=== PATIENT | male | born 1945 | race Caucasian/White ===

== ENCOUNTER 2023-11-15 16:56 | Inpatient (IN) ==
[2023-11-15] MEDS: Lactated Ringers 1000 ml BAG 1,000 ML IV ONE (22:09)
[2023-11-15 23:25] LABS: C Reactive Protein 5.96 mg/L (<8.01); Magnesium 1.9 mg/dL (1.9-2.7)
[2023-11-15 23:47] LABS: Urine Appearance Clear; Urine Bilirubin Negative (Negative); Urine Blood Negative (Negative); Urine Color Light-Yellow; Urine Glucose Negative (Negative); Urine Ketones Negative (Negative); Urine Nitrite Negative (Negative); Urine Protein Trace (Negative); Urine Specific Gravity 1.012 (1.002-1.030); Urine Urobilinogen Negative (Negative); Urine pH 5.5 (5.0-8.0)
[2023-11-16 00:04] LABS: High Sensitivity Troponin 1 Hr 20 pg/mL (<20)
[2023-11-16] MEDS: Lactated Ringers 1000 ml BAG 1,000 ML IV ONE (01:55)
[2023-11-16] MEDS: Calcitonin (Salmon) INJ 200 UNITS/ML 2 ML VIAL (400 units) IM ONE (03:17)
[2023-11-16] MEDS ORDERED: Dextrose 50% Syringe 50 ml 25 GM/50 ML SYRINGE IV PUSH PRN (03:40)
[2023-11-16] MEDS: Zoledronic Acid 4 MG in NS 0.9% 100 ml BAG 100 ML IVPB ONE (03:53)
[2023-11-16] MEDS: NS 0.9% 1000 ml BAG 1,000 ML IV SCH ×3 (04:07→19:44)
[2023-11-16 04:26] LABS: Hematocrit 31.6 % (38-53); Hemoglobin 10.3 g/dL (13.2-16.3); Mean Corpuscular Hemoglobin 32.9 pg (27-33); Mean Corpuscular Hgb Conc 32.5 g/dL (31-36); Mean Corpuscular Volume 101.4 fL (80-97); Mean Platelet Volume 10.1 fL (7.5-11.2); Platelet Count 80 10^3/uL (150-450); Red Blood Count 3.12 10^6/uL (4.06-5.63); Red Cell Distribution Width 15.7 % (12-17); White Blood Count 74.6 10^3/uL (3.6-10.2)
[2023-11-16 04:27] LABS: Activated Partial Thrombo Time 19.9 seconds (26.0-38.0); INR 0.99 (0.83-1.13)
[2023-11-16] MEDS: Ondansetron 4 mg VIAL 2 MG/ML 2 ml VIAL IV PRN (05:02)
[2023-11-16 05:05] LABS: Magnesium 1.8 mg/dL (1.9-2.7); Phosphorus 4.5 mg/dL (2.5-5.0)
[2023-11-16 05:15] LABS: Albumin 3.7 g/dL (3.2-5.2); Albumin/Globulin Ratio 2.1 (1-3); Calcium 14.4 mg/dL (8.6-10.3); Creatinine, Serum 3.55 mg/dL (0.67-1.17); Globulin 1.8 g/dL (2-4); Total Bilirubin 2.2 mg/dL (0.2-1.0); Total Protein 5.5 g/dL (6.4-8.9); eGFR CKD-EPI 16.8 (>60)
[2023-11-16 05:16] LABS: Calcium (PTH Intact) 14.2 mg/dL (8.6-10.3)
[2023-11-16 05:34] LABS: Vitamin D Total 25(OH) 55.4 ng/mL (20-50)
[2023-11-16] MEDS ORDERED: Scopolamine 1 mg/72hr PATCH TRANSDERM SCH (06:00)
[2023-11-16] MEDS: Enoxaparin 30 MG/0.3 ML SYR SUBCUT SCH (07:19)
[2023-11-16] MEDS: IBRUTINIB 140 MG PO SCH (10:28)
[2023-11-16 11:24] LABS: ALT 32 U/L (7-52); Albumin 3.4 g/dL (3.2-5.2); Albumin/Globulin Ratio 1.9 (1-3); Alkaline Phosphatase 115 U/L (35-149); Anion Gap 11 mmol/L (2-16); Blood Urea Nitrogen 52 mg/dL (6-24); CO2 Carbon Dioxide 26 mmol/L (22-32); Chloride 106 mmol/L (101-111); Creatinine, Serum 3.43 mg/dL (0.67-1.17); Globulin 1.8 g/dL (2-4); Glucose 113 mg/dL (70-100); Sodium 143 mmol/L (135-145); Total Bilirubin 1.8 mg/dL (0.2-1.0); Total Protein 5.2 g/dL (6.4-8.9); eGFR CKD-EPI 17.6 (>60)
[2023-11-16 17:11] LABS: Albumin 3.4 g/dL (3.2-5.2); Calcium 12.6 mg/dL (8.6-10.3); Creatinine, Serum 3.57 mg/dL (0.67-1.17); Globulin 1.7 g/dL (2-4); Potassium 4.2 mmol/L (3.5-5.0); Total Bilirubin 1.8 mg/dL (0.2-1.0); Total Protein 5.1 g/dL (6.4-8.9); Uric Acid 12.9 mg/dL (4.4-7.6); eGFR CKD-EPI 16.7 (>60)
[2023-11-16 17:48] LABS: Ferritin 412.8 ng/mL (24-336)
[2023-11-16 17:52] LABS: Folate 19.56 ng/mL (5.90-24.80)
[2023-11-16 23:12] LABS: Albumin 3.1 g/dL (3.2-5.2); Albumin/Globulin Ratio 2.1 (1-3); Calcium 11.9 mg/dL (8.6-10.3); Creatinine, Serum 3.88 mg/dL (0.67-1.17); Globulin 1.5 g/dL (2-4); Potassium 4.1 mmol/L (3.5-5.0); Total Bilirubin 1.5 mg/dL (0.2-1.0); Total Protein 4.6 g/dL (6.4-8.9); Uric Acid 12.8 mg/dL (4.4-7.6); eGFR CKD-EPI 15.1 (>60)
[2023-11-17 07:46] LABS: Hematocrit 26.8 % (38-53); Hemoglobin 8.8 g/dL (13.2-16.3); Mean Corpuscular Hemoglobin 33.3 pg (27-33); Mean Corpuscular Hgb Conc 32.7 g/dL (31-36); Mean Corpuscular Volume 101.8 fL (80-97); Mean Platelet Volume 9.4 fL (7.5-11.2); Platelet Count 63 10^3/uL (150-450); Red Blood Count 2.63 10^6/uL (4.06-5.63); Red Cell Distribution Width 15.8 % (12-17); White Blood Count 52.3 10^3/uL (3.6-10.2)
[2023-11-17 07:50] LABS: Albumin 3.1 g/dL (3.2-5.2); Albumin/Globulin Ratio 2.1 (1-3); Calcium 11.4 mg/dL (8.6-10.3); Creatinine, Serum 3.85 mg/dL (0.67-1.17); Globulin 1.5 g/dL (2-4); Potassium 3.8 mmol/L (3.5-5.0); Total Bilirubin 1.5 mg/dL (0.2-1.0); Total Protein 4.6 g/dL (6.4-8.9); Uric Acid 12.6 mg/dL (4.4-7.6); eGFR CKD-EPI 15.3 (>60)
[2023-11-17] MEDS ORDERED: IBRUTINIB 420 MG PO SCH (09:00)
[2023-11-17] MEDS ORDERED: Rasburicase 1.5 MG VIAL(NF) IVPB ONE (09:10)
[2023-11-17 11:35] LABS: Albumin 3.5 g/dL (3.2-5.2); Albumin/Globulin Ratio 1.9 (1-3); Calcium 11.7 mg/dL (8.6-10.3); Creatinine, Serum 3.82 mg/dL (0.67-1.17); Globulin 1.8 g/dL (2-4); Potassium 3.9 mmol/L (3.5-5.0); Total Bilirubin 1.8 mg/dL (0.2-1.0); Total Protein 5.3 g/dL (6.4-8.9); Uric Acid 12.1 mg/dL (4.4-7.6); eGFR CKD-EPI 15.4 (>60)
[2023-11-17] MEDS: Rasburicase 3 MG in NS 0.9% 50 ML 48 ML IVPB ONE (14:18)
[2023-11-17 15:48] LABS: Magnesium 1.6 mg/dL (1.9-2.7)
[2023-11-17 16:52] LABS: Albumin 3.2 g/dL (3.2-5.2); Calcium 10.9 mg/dL (8.6-10.3); Creatinine, Serum 3.89 mg/dL (0.67-1.17); Globulin 1.6 g/dL (2-4); Potassium 3.6 mmol/L (3.5-5.0); Total Bilirubin 1.6 mg/dL (0.2-1.0); Total Protein 4.8 g/dL (6.4-8.9); eGFR CKD-EPI 15.1 (>60)
[2023-11-17] MEDS: Magnesium Sulf 4 GM/100 ML IV 4,000 MG/100 ML BAG IVPB ONE (18:33)
[2023-11-18 06:25] LABS: Hematocrit 27.3 % (38-53); Hemoglobin 8.8 g/dL (13.2-16.3); Mean Corpuscular Hemoglobin 32.9 pg (27-33); Mean Corpuscular Hgb Conc 32.2 g/dL (31-36); Mean Corpuscular Volume 102.1 fL (80-97); Mean Platelet Volume 9.6 fL (7.5-11.2); Platelet Count 72 10^3/uL (150-450); Red Blood Count 2.68 10^6/uL (4.06-5.63); Red Cell Distribution Width 15.8 % (12-17); White Blood Count 72.2 10^3/uL (3.6-10.2)
[2023-11-18 06:26] LABS: ABS Basophils 0.2 10^3/uL (0.0-0.1); ABS Eosinophils 0.2 10^3/uL (0.0-0.5); ABS Lymphocytes 66.8 10^3/uL (1.0-4.8); ABS Monocytes 1.8 10^3/uL (0.0-1.1); ABS Neutrophils 3.2 10^3/uL (1.5-7.6); ABS Nucleated RBC 0.26 10^3/ul; Calcium 10.1 mg/dL (8.6-10.3); Creatinine, Serum 3.64 mg/dL (0.67-1.17); Eosinophil % 0.3 %; Globulin 1.5 g/dL (2-4); Lymphocyte % 92.4 %; Magnesium 2.1 mg/dL (1.9-2.7); Nucleated Red Blood Cells % 0.4 %/100WBC (0.0-0.8); Potassium 3.5 mmol/L (3.5-5.0); RBC Morphology Normal (Normal); Total Bilirubin 1.8 mg/dL (0.2-1.0); Total Protein 4.5 g/dL (6.4-8.9); Uric Acid 5.8 mg/dL (4.4-7.6); eGFR CKD-EPI 16.3 (>60)
[2023-11-18] MEDS: Potassium Chlor 20 meq TAB.ER PO ONE (09:00)
[2023-11-18 18:11] VITALS: BP 134/70
[2023-11-19 12:39] LABS: Kappa Free Light Chain 2.27 mg/dL; Lambda Free Light Chain, S 11.1 mg/dL
[2023-11-22 15:25] LABS: Flag, M-protein Isotype Positive (Negative); Immunoglobulin A (IgA), S 104 mg/dL (61 - 356); Immunoglobulin G (IgG), S 596 mg/dL (767 - 1590); Immunoglobulin M (IgM), S 38 mg/dL (37 - 286); M-protein GL 0.047 g/dL
== END 2023-11-18 18:25 | disposition home or self-care (01) | DRG 641 ==
LOC: ED 16:56 → EDHOLD 16:56 → SUATTDRO 11-16 03:35 → MEDTELE 11-16 11:33
PROVIDERS: ADMIT Internal Medicine; ATTEND Family Medicine

== ENCOUNTER 2023-11-22 13:50 | Inpatient (IN) ==
[2023-11-22 15:00] LABS: Hemoglobin 8.6 g/dL (13.2-16.3); Mean Corpuscular Hemoglobin 32.9 pg (27-33); Mean Corpuscular Hgb Conc 33.2 g/dL (31-36); Mean Corpuscular Volume 99.1 fL (80-97); Mean Platelet Volume 8.1 fL (7.5-11.2); Platelet Count 100 10^3/uL (150-450); Red Blood Count 2.63 10^6/uL (4.06-5.63); Red Cell Distribution Width 16.8 % (12-17); White Blood Count 155.7 10^3/uL (3.6-10.2)
[2023-11-22] MEDS ORDERED: Enoxaparin 40 MG/0.4 ML SYR SUBCUT SCH (15:00)
[2023-11-22 15:01] LABS: ABS Neutrophils 4.6 10^3/uL (1.5-7.6)
[2023-11-22 15:57] LABS: ABS Basophils 0.6 10^3/uL (0.0-0.1); ABS Eosinophils 0.3 10^3/uL (0.0-0.5); ABS Lymphocytes 147.2 10^3/uL (1.0-4.8); ABS Monocytes 3.1 10^3/uL (0.0-1.1); ABS Nucleated RBC 0.52 10^3/ul; Eosinophil % 0.2 %; Lymphocyte % 94.5 %; Nucleated Red Blood Cells % 0.3 %/100WBC (0.0-0.8)
[2023-11-22] MEDS: Dexamethasone IV 40 MG in NS 0.9% 50 ML 50 ML IVPB ONE (16:38)
[2023-11-22] MEDS: NS 0.9% 1000 ml BAG 1,000 ML IV SCH (16:39)
[2023-11-23 06:24] LABS: Albumin 3.2 g/dL (3.2-5.2); Albumin/Globulin Ratio 1.9 (1-3); Calcium 8.2 mg/dL (8.6-10.3); Creatinine, Serum 3.44 mg/dL (0.67-1.17); Globulin 1.7 g/dL (2-4); Potassium 3.6 mmol/L (3.5-5.0); Total Bilirubin 1.4 mg/dL (0.2-1.0); Total Protein 4.9 g/dL (6.4-8.9); Uric Acid 6.1 mg/dL (4.4-7.6); eGFR CKD-EPI 17.5 (>60)
[2023-11-23 07:29] LABS: Hematocrit 24.2 % (38-53); Hemoglobin 8.1 g/dL (13.2-16.3); Mean Corpuscular Hemoglobin 32.7 pg (27-33); Mean Corpuscular Hgb Conc 33.3 g/dL (31-36); Mean Corpuscular Volume 98.2 fL (80-97); Mean Platelet Volume 8.9 fL (7.5-11.2); Platelet Count 91 10^3/uL (150-450); Red Blood Count 2.47 10^6/uL (4.06-5.63); Red Cell Distribution Width 16.6 % (12-17); White Blood Count 217.6 10^3/uL (3.6-10.2)
[2023-11-23 08:01] LABS: ABS Basophils 0.2 10^3/uL (0.0-0.1); ABS Eosinophils 0.2 10^3/uL (0.0-0.5); ABS Lymphocytes 209.1 10^3/uL (1.0-4.8); ABS Monocytes 2.3 10^3/uL (0.0-1.1); ABS Neutrophils 5.9 10^3/uL (1.5-7.6); ABS Nucleated RBC 0.48 10^3/ul; Eosinophil % 0.1 %; Lymphocyte % 96.1 %; Nucleated Red Blood Cells % 0.2 %/100WBC (0.0-0.8)
[2023-11-23 14:45] LABS: Calcium 9.2 mg/dL (8.6-10.3); Creatinine, Serum 3.54 mg/dL (0.67-1.17); Potassium 3.6 mmol/L (3.5-5.0); Total Protein 5.5 g/dL (6.4-8.9); Uric Acid 5.5 mg/dL (4.4-7.6); eGFR CKD-EPI 16.9 (>60)
[2023-11-23 14:46] LABS: Albumin 3.4 g/dL (3.2-5.2); Albumin/Globulin Ratio 1.6 (1-3); Globulin 2.1 g/dL (2-4); Total Bilirubin 1.6 mg/dL (0.2-1.0)
[2023-11-24 06:10] LABS: Hematocrit 21.2 % (38-53); Mean Corpuscular Hemoglobin 32.9 pg (27-33); Mean Corpuscular Hgb Conc 33.2 g/dL (31-36); Platelet Count 64 10^3/uL (150-450); Red Blood Count 2.15 10^6/uL (4.06-5.63); White Blood Count 157.7 10^3/uL (3.6-10.2)
[2023-11-24 06:26] LABS: Calcium 7.5 mg/dL (8.6-10.3); Creatinine, Serum 3.09 mg/dL (0.67-1.17); Globulin 1.5 g/dL (2-4); Magnesium 1.5 mg/dL (1.9-2.7); Potassium 3.1 mmol/L (3.5-5.0); Total Bilirubin 1.3 mg/dL (0.2-1.0); Total Protein 4.5 g/dL (6.4-8.9); Uric Acid 7.1 mg/dL (4.4-7.6); eGFR CKD-EPI 19.9 (>60)
[2023-11-24] MEDS: fentaNYL 100 mcg/2 ml 50 MCG/ML VIAL ONE (06:54)
[2023-11-24 07:12] LABS: ABS Eosinophils 0.1 10^3/uL (0.0-0.5); ABS Lymphocytes 150.5 10^3/uL (1.0-4.8); ABS Monocytes 3.6 10^3/uL (0.0-1.1); ABS Neutrophils 3.5 10^3/uL (1.5-7.6); Eosinophil % 0.1 %; Lymphocyte % 95.4 %; Nucleated Red Blood Cells % 0.3 %/100WBC (0.0-0.8)
[2023-11-24] MEDS: Magnesium Sulfate IV 1GM/100ML 1 GM/100 ML BAG IV ONE (08:30)
[2023-11-24] MEDS: Magnesium Sulfate 2 gm BAG 2 GM/50 ML BAG IVPB ONE (08:58)
[2023-11-24] MEDS: Potassium Chlor 20 meq TAB.ER PO ONE (12:01)
[2023-11-24 12:35] LABS: Immature Retic Fraction 0.72
[2023-11-24] MEDS: Dexamethasone IV 40 MG in NS 0.9% 50 ML 50 ML IVPB ONE (12:35)
[2023-11-24 13:05] LABS: Corrected Retic Count 0.7 % (0.5-2.2); Hematocrit for Retic CNT 21.2 % (38-53); RBC Retic Count 2.15 10^6/ul (4.06-5.63)
[2023-11-25 06:33] LABS: ABS Basophils 0.3 10^3/uL (0.0-0.1); ABS Eosinophils 0.2 10^3/uL (0.0-0.5); ABS Lymphocytes 202.3 10^3/uL (1.0-4.8); ABS Monocytes 2.1 10^3/uL (0.0-1.1); ABS Neutrophils 7.1 10^3/uL (1.5-7.6); ABS Nucleated RBC 0.57 10^3/ul; Eosinophil % 0.1 %; Lymphocyte % 95.5 %; Nucleated Red Blood Cells % 0.3 %/100WBC (0.0-0.8); RBC Morphology Normal (Normal); Smudge Cells Present
[2023-11-25 06:58] LABS: Albumin 3.3 g/dL (3.2-5.2); Albumin/Globulin Ratio 1.7 (1-3); Calcium 7.4 mg/dL (8.6-10.3); Creatinine, Serum 2.66 mg/dL (0.67-1.17); Globulin 1.9 g/dL (2-4); Potassium 3.9 mmol/L (3.5-5.0); Total Bilirubin 1.6 mg/dL (0.2-1.0); Total Protein 5.2 g/dL (6.4-8.9); Uric Acid 6.7 mg/dL (4.4-7.6); eGFR CKD-EPI 23.8 (>60)
[2023-11-25 08:40] LABS: Mean Platelet Volume 8.5 fL (7.5-11.2); Platelet Count 63 10^3/uL (150-450)
[2023-11-25 08:41] LABS: Hematocrit 25.9 % (38-53); Hemoglobin 8.5 g/dL (13.2-16.3); Mean Corpuscular Hemoglobin 31.2 pg (27-33); Mean Corpuscular Hgb Conc 32.6 g/dL (31-36); Mean Corpuscular Volume 95.6 fL (80-97); Red Blood Count 2.71 10^6/uL (4.06-5.63); Red Cell Distribution Width 20.4 % (12-17)
[2023-11-25] MEDS: Dexamethasone IV 40 MG in NS 0.9% 50 ML 50 ML IVPB ONE (11:43)
[2023-11-25] MEDS: Lactated Ringers 1000 ml BAG 1,000 ML IV SCH (15:35)
[2023-11-26 06:14] LABS: Hematocrit 24.3 % (38-53); Hemoglobin 8.1 g/dL (13.2-16.3); Mean Corpuscular Hemoglobin 32.3 pg (27-33); Mean Corpuscular Hgb Conc 33.4 g/dL (31-36); Mean Corpuscular Volume 96.6 fL (80-97); Mean Platelet Volume 8.2 fL (7.5-11.2); Platelet Count 60 10^3/uL (150-450); Red Blood Count 2.51 10^6/uL (4.06-5.63); Red Cell Distribution Width 19.7 % (12-17)
[2023-11-26 06:41] LABS: Albumin 3.4 g/dL (3.2-5.2); Albumin/Globulin Ratio 1.7 (1-3); Calcium 7.2 mg/dL (8.6-10.3); Creatinine, Serum 2.52 mg/dL (0.67-1.17); Magnesium 1.7 mg/dL (1.9-2.7); Potassium 4.2 mmol/L (3.5-5.0); Total Bilirubin 1.7 mg/dL (0.2-1.0); Total Protein 5.4 g/dL (6.4-8.9); Uric Acid 7.1 mg/dL (4.4-7.6); eGFR CKD-EPI 25.4 (>60)
[2023-11-26 08:53] LABS: ABS Eosinophils 0.1 10^3/uL (0.0-0.5); ABS Lymphocytes 202.3 10^3/uL (1.0-4.8); ABS Monocytes 3.3 10^3/uL (0.0-1.1); ABS Neutrophils 6.1 10^3/uL (1.5-7.6); ABS Nucleated RBC 1.23 10^3/ul; Anisocytosis 2+; Lymphocyte % 95.5 %; Nucleated Red Blood Cells % 0.6 %/100WBC (0.0-0.8); White Blood Count 211.8 10^3/uL (3.6-10.2)
[2023-11-26] MEDS: Magnesium Sulfate IV 1GM/100ML 1 GM/100 ML BAG IV ONE (09:53)
[2023-11-26] MEDS: Magnesium Sulfate 2 gm BAG 2 GM/50 ML BAG IVPB ONE (11:19)
[2023-11-27 06:01] LABS: Hematocrit 26.3 % (38-53); Hemoglobin 8.7 g/dL (13.2-16.3); Mean Corpuscular Hemoglobin 31.7 pg (27-33); Mean Platelet Volume 8.5 fL (7.5-11.2); Platelet Count 62 10^3/uL (150-450); Red Blood Count 2.74 10^6/uL (4.06-5.63); Red Cell Distribution Width 19.5 % (12-17); White Blood Count 185.8 10^3/uL (3.6-10.2)
[2023-11-27 06:16] LABS: ABS Basophils 0.1 10^3/uL (0.0-0.1); ABS Eosinophils 0.2 10^3/uL (0.0-0.5); ABS Lymphocytes 176.9 10^3/uL (1.0-4.8); ABS Monocytes 2.8 10^3/uL (0.0-1.1); ABS Neutrophils 5.8 10^3/uL (1.5-7.6); ABS Nucleated RBC 0.46 10^3/ul; Anisocytosis 1+; Eosinophil % 0.1 %; Lymphocyte % 95.3 %; Nucleated Red Blood Cells % 0.2 %/100WBC (0.0-0.8); Polychromasia 1+; Smudge Cells Present
[2023-11-27 06:20] LABS: Calcium 7.3 mg/dL (8.6-10.3); Creatinine, Serum 2.52 mg/dL (0.67-1.17); Potassium 3.7 mmol/L (3.5-5.0); eGFR CKD-EPI 25.4 (>60)
[2023-11-28 06:57] LABS: Calcium 7.1 mg/dL (8.6-10.3); Creatinine, Serum 2.32 mg/dL (0.67-1.17); Magnesium 1.7 mg/dL (1.9-2.7); Potassium 3.7 mmol/L (3.5-5.0); eGFR CKD-EPI 28.1 (>60)
[2023-11-28 07:36] LABS: Hematocrit 24.1 % (38-53); Hemoglobin 7.9 g/dL (13.2-16.3); Mean Corpuscular Hemoglobin 31.8 pg (27-33); Mean Corpuscular Volume 96.5 fL (80-97); Mean Platelet Volume 8.5 fL (7.5-11.2); Platelet Count 63 10^3/uL (150-450); Red Cell Distribution Width 19.1 % (12-17); White Blood Count 174.3 10^3/uL (3.6-10.2)
[2023-11-28 07:42] LABS: ABS Basophils 0.3 10^3/uL (0.0-0.1); ABS Eosinophils 0.4 10^3/uL (0.0-0.5); ABS Lymphocytes 165.1 10^3/uL (1.0-4.8); ABS Monocytes 2.8 10^3/uL (0.0-1.1); ABS Neutrophils 5.6 10^3/uL (1.5-7.6); ABS Nucleated RBC 0.17 10^3/ul; Anisocytosis 1+; Eosinophil % 0.2 %; Lymphocyte % 94.8 %; Nucleated Red Blood Cells % 0.1 %/100WBC (0.0-0.8); Polychromasia 1+; Smudge Cells Present
[2023-11-28 09:37] VITALS: BP 141/66
[2023-12-04 14:23] LABS: Case Number CR-24-26562
== END 2023-11-28 13:32 | disposition home or self-care (01) | DRG 841 ==
LOC: CHOA 13:50 → MEDTELE 15:35
PROVIDERS: ADMIT Internal Medicine Hematology & Oncology; ATTEND Internal Medicine Hematology & Oncology